=== PATIENT | female | born 1995 | race Hispanic/Latino ===

== ENCOUNTER 2018-07-25 10:54 | Emergency (ER) | payer OTHER ==
[2018-07-25 11:40] LABS: Urine Blood TRACE (NEG); Urine Glucose NEGATIVE (NEG); Urine Protein NEGATIVE (NEG); Urine Specific Gravity <1.005 (1.005-1.030)
[2018-07-25 13:42] LABS: Absolute Lymphocytes (CBC) 2.7 K/uL (0.7-4.9); Absolute Monocytes 0.7 K/uL (0.1-1.3); Absolute Neutrophil 7.1 K/uL (1.8-8.0); Basophils % 0.8 % (0-1.3); Eosinophils % 0.9 % (0-4.4); Hematocrit 38.3 % (36.0-45.0); Lymphocytes % 25.5 % (15.3-44.8); MPV 7.8 fL (7.6-11.3); Monocytes % 6.6 % (3.3-12.3)
[2018-07-25 13:58] LABS: ALT/SGPT 53 U/L (12-78); AST/SGOT 34 U/L (15-37); Albumin 3.3 g/dL (3.4-5.0); Alkaline Phosphatase 44 U/L (45-117); BUN Blood Urea Nitrogen 8 mg/dL (7-18); Bicarbonate 22 mmol/L (21-32); Bilirubin Direct < 0.1 mg/dL (0-0.2); Bilirubin Total 0.2 mg/dL (0.2-1.0); Glucose Level 84 mg/dL (74-106); Lipase 146 U/L (73-393); Potassium 4.4 mmol/L (3.5-5.1); Protein, Total 7.4 g/dL (6.4-8.2); Sodium Level 139 mmol/L (136-145)
--- NOTE | 2018-07-25 14:34 | RAD REPORT ---
EXAM DESCRIPTION: US - Abdomen Exam Limited - 07/25/2018 2:19 pm CLINICAL HISTORY: epigastric pain, vomiting COMPARISON: No comparisons FINDINGS: The gallbladder demonstrates sludge and multiple stones suspected. No pericholecystic flui d or gallbladder wall thickening. The common bile duct is normal measuring 5 mm. The liver demonstrates no findings of intrahepatic biliary dilatation. IMPRESSION: Gallbladder sludge and stones noted without evidence of acute cholecystitis.
--- NOTE | 2018-07-25 15:09 | ER ---
Nurse's Notes [facility] Name: Ann Mitchell Age: 23 yrs Sex: Female : 1995 Arrival Date: 07/25/2018 Time: 10:56 Bed 23 Private MD: Diagnosis: Cholelithiasis;Gastritis, unspecified Presentation: 07/25 11:08 Presenting complaint: Patient states: epigastric pain that began at 0300 today. Pt aa5 states "I've had gastritis before but I haven't had an episode in a while and since I've been it seems like it's back". Pt reports she is 15 weeks . Denies vaginal bleeding. Transition of care: patient was not received from another setting of care. Onset of symptoms was June 2018. Risk Assessment: Do you want to hurt yourself or someone else? Patient reports no desire to harm self or others. Initial Sepsis Screen: Does the patient meet any 2 criteria? No. Patient's initial sepsis screen is negative. Does the patient have a suspected source of infection? No. Patient's initial sepsis screen is negative. Care prior to arrival: None. 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 - Social history:: Smoking status: Patient/guardian denies using tobacco. - Ebola Screening: : No symptoms or risks identified at this time. - Family history:: not pertinent. - Hospitalizations: : No recent hospitalization is reported. Screenin:35 Abuse screen: Denies threats or abuse. Denies injuries from another. Nutritional mg2 screening: No deficits noted. Tuberculosis screening: No symptoms or risk factors identified. Fall Risk IV access (20 points). Assessment: 13:36 General: Appears in no apparent distress. comfortable, Behavior is calm, cooperative. mg2 Pain: Complains of pain in abdomen Pain does not radiate. Pain currently is 4 out of 10 on a pain scale. Quality of pain is described as aching, Pain began gradually, Is intermittent. Neuro: Level of Consciousness is awake, alert, obeys commands, Oriented to person, place, time, situation. Cardiovascular: Capillary refill < 3 seconds Patient's skin is warm and dry. Respiratory: Airway Respiratory effort is even, unlabored, Respiratory pattern is regular, symmetrical, Breath sounds are clear. GI: Bowel sounds present X 4 quads. Abd is soft and non tender X 4 quads. :. EENT: No signs and/or symptoms were reported regarding the EENT system. Derm: Skin is intact, is healthy with good turgor, Skin is pink, warm \\T\\ dry. normal. Musculoskeletal: Circulation, motion, and sensation intact. Capillary refill < 3 seconds. Vital Signs: 11:10 BP 114 / 78; Pulse 83; Resp 16 S; Temp 98.6(TE); Pulse Ox 99% on R/A; Weight 82.55 kg aa5 (R); Height 5 ft. 4 in. (162.56 cm) (R); Pain 7/10; 13:40 BP 112 / 71; Pulse 62; Resp 18; Pulse Ox 100% on R/A; Pain 4/10; mg2 14:45 BP 105 / 69; Pulse 80; Resp 18; Pulse Ox 100% on R/A; mg2 15:00 BP 91 / 59 LA Supine; Pulse 75; Resp 19 S; Pulse Ox 100% on BiPAP; aj1 11:10 Body Mass Index 31.24 (82.55 kg, 162.56 cm) aa5 ED Course: 10:56 Patient arrived in ED. as 11:08 Arm band placed on. aa5 11:10 Triage completed. aa5 13:08 Larry Dixon MD is Attending Physician. rn 13:11 Isaias Nowak, [facility] is Primary Nurse. mg2 13:36 No provider procedures requiring assistance completed. Inserted saline lock: 20 gauge mg2 in right antecubital area, using aseptic technique. Blood collected. 13:39 Patient has correct armband on for positive identification. mg2 14:19 US Abdomen Limited In Process Unspecified. EDMS 15:16 Patient did not have IV access during this emergency room visit. aj1 Administered Medications: No medications were administered Outcome: 15:08 Discharge ordered by . rn 15:16 Discharged to home ambulatory. aj1 15:16 Condition: good 15:16 Discharge instructions given to patient, family, Instructed on discharge instructions, follow up and referral plans. Demonstrated understanding of instructions, follow-up care. 15:16 Patient left the ED. aj1 Signatures: Dispatcher [employer] Elvira Lowry RN RN aj1 Sharona Hall Roman, MD MD rn Calderon, Audri, RN RN aa5 Isaias Nowak RN RN mg2
--- NOTE | 2018-07-25 15:09 | EDPHYS ---
Physician Documentation [facility] Name: Ann Mitchell Age: 23 yrs Sex: Female : 1995 Arrival Date: 07/25/2018 Time: 10:56 Bed 23 Private MD: ED Physician Larry Dixon HPI: 07/25 15:00 This 23 yrs old Female presents to ER via Ambulatory with complaints of rn Abdominal Pain - 15 wks preg. 15:00 The patient presents with abdominal pain in the epigastric area. Onset: The rn symptoms/episode began/occurred yesterday. The symptoms do not radiate. Associated signs and symptoms: Pertinent positives: nausea. 15:00 The symptoms are described as burning. Modifying factors: The symptoms are alleviated rn by nothing, the symptoms are aggravated by food, touching the area. Severity of pain: At its worst the pain was moderate in the emergency department the pain has improved. The patient has experienced similar episodes in the past. Reports epigastric abd pain, assoc with nausea, is , but denies vaginal bleeding/leakage of fluid/lower abd pain. Has had an ultrasound, single . No trauma. Reports hx of acid problems in past as well as gallbladders problems in past but told didn't need surgery.. 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 - Social history:: Smoking status: Patient/guardian denies using tobacco. - Ebola Screening: : No symptoms or risks identified at this time. - Family history:: not pertinent. - Hospitalizations: : No recent hospitalization is reported. ROS: 15:00 Constitutional: Negative for fever, chills, and weight loss, Eyes: Negative for injury, rn pain, redness, and discharge, Cardiovascular: Negative for chest pain, palpitations, and edema, Respiratory: Negative for shortness of breath, cough, wheezing, and pleuritic chest pain, Abdomen/GI: + abd pain and nausea, negative for diarrhea : Negative for injury, bleeding, discharge, and swelling, MS/Extremity: Negative for injury and deformity, Skin: Negative for injury, rash, and discoloration, Neuro: Negative for headache, weakness, numbness, tingling, and seizure. Exam: 15:00 Constitutional: This is a well developed, well nourished patient who is awake, alert, rn and in no acute distress. Head/Face: Normocephalic, atraumatic. Eyes: Pupils equal round and reactive to light, extra-ocular motions intact. Lids and lashes normal. Conjunctiva and sclera are non-icteric and not injected. Cornea within normal limits. Periorbital areas with no swelling, redness, or edema. ENT: MMM Cardiovascular: Regular rate and rhythm. No pulse deficits. Respiratory: No increased work of breathing, no retractions or nasal flaring. Abdomen/GI: soft, Mild epigastric tenderness, no rebound, neg dawson MS/ Extremity: Pulses equal, no cyanosis. Neurovascular intact. Full, normal range of motion. Equal circumference. Neuro: Awake and alert, GCS 15, oriented to person, place, time, and situation. Cranial nerves II-XII grossly intact. Motor strength 5/5 in all extremities. Sensory grossly intact. Vital Signs: 11:10 BP 114 / 78; Pulse 83; Resp 16 S; Temp 98.6(TE); Pulse Ox 99% on R/A; Weight 82.55 kg aa5 (R); Height 5 ft. 4 in. (162.56 cm) (R); Pain 7/10; 13:40 BP 112 / 71; Pulse 62; Resp 18; Pulse Ox 100% on R/A; Pain 4/10; mg2 14:45 BP 105 / 69; Pulse 80; Resp 18; Pulse Ox 100% on R/A; mg2 15:00 BP 91 / 59 LA Supine; Pulse 75; Resp 19 S; Pulse Ox 100% on BiPAP; aj1 11:10 Body Mass Index 31.24 (82.55 kg, 162.56 cm) aa5 MDM: 13:08 Patient medically screened. rn 15:00 Differential diagnosis: cholecystitis, Cholelithiasis, gastritis, gastroesophageal rn reflux disease, non-specific abd pain, pancreatitis, Peptic Ulcer Disease, urinary tract infection. Data reviewed: vital signs, nurses notes, lab test result(s), radiologic studies, ultrasound, and as a result, I will discharge patient. Counseling: I had a detailed discussion with the patient and/or guardian regarding: the historical points, exam findings, and any diagnostic results supporting the discharge/admit diagnosis, lab results, radiology results, the need for outpatient follow up, to return to the emergency department if symptoms worsen or persist or if there are any questions or concerns that arise at home. Response to treatment: the patient's symptoms have mildly improved after treatment, and as a result, I will discharge patient. Special discussion: Based on the patient's Hx, exam, and Dx evaluation, there is no indication for emergent surgery or inpatient Tx. It is understood by the patient/guardian that if the Sx's persist or worsen they need to return immediately for re-evaluation. I discussed with the patient/guardian in detail that at this point there is no indication for admission to the hospital. It is understood, however, that if the symptoms persist or worsen the patient needs to return immediately for re-evaluation. ED course: Pt with known gallstones and gastritis, likely exacerbated by , no evidence of cholecystitis. Will dc home with results printed to f/u with OB, tylenol PRN for pain, diet examples given and return precautions given and understood.. 07/25 11:34 Order name: Urine Dipstick--Ancillary (enter results); Complete Time: 13: 07/25 11:34 Order name: Urine --Ancillary (enter results); Complete Time: 13: bd 07/25 13:17 Order name: Basic Metabolic Panel; Complete Time: 14: 07/25 13:17 Order name: CBC with Diff; Complete Time: 14: 07/25 13:17 Order name: Hepatic Function; Complete Time: 14: rn 07/25 13:17 Order name: Lipase; Complete Time: 14: rn 07/25 13:17 Order name: IV Saline Lock; Complete Time: 13: rn 07/25 13:17 Order name: Labs collected and sent; Complete Time: 13: rn 07/25 13:17 Order name: US Abdomen Limited; Complete Time: 14:41 rn Administered Medications: No medications were administered Disposition: 07/25/18 15:08 Discharged to Home. Impression: Cholelithiasis, Gastritis, unspecified. - Condition is Stable. - Discharge Instructions: Gastritis, Adult, Cholelithiasis. - Medication Reconciliation Form, Thank You Letter, Antibiotic Education, Prescription Opioid Use form. - Follow up: Private Physician; When: As needed; Reason: Recheck today's complaints, Re-evaluation by your physician. - Problem is new. - Symptoms have improved. Signatures: Dispatcher [employer] Elvira Lowry, RN RN aj1 Larry Dixon MD MD rn Calderon, Audri, RN RN aa5 Corrections: (The following items were deleted from the chart) 15:16 15:08 07/25/2018 15:08 Discharged to Home. Impression: Cholelithiasis; Gastritis, aj1 unspecified. Condition is Stable. Forms are Medication Reconciliation Form, Thank You Letter, Antibiotic Education, Prescription Opioid Use. Follow up: Private Physician; When: As needed; Reason: Recheck today's complaints, Re-evaluation by your physician. Problem is new. Symptoms have improved. rn
== END 2018-07-25 15:16 | disposition home or self-care (01) ==
LOC: ER 10:54
DX: O99.612 Diseases of the digestive system complicating pregnancy, second trimester (principal); K29.70 Gastritis, unspecified, without bleeding; Z3A.15 15 weeks gestation of pregnancy
CPT/HCPCS: 36415; 76705; 80048; 80076; 81003; 81025; 83690; 85025